=== PATIENT | male | born 1980 | race Caucasian/White ===

== ENCOUNTER 2017-07-07 12:16 | Inpatient (IN) | payer OTHER ==
[2017-07-07] MEDS: NICOTINE 21MG/24HR 1 EA TRANSDERMAL TD (09:00)
[2017-07-07 13:08] LABS: HEMATOCRIT 43.7 % (42.0-52.0); HEMOGLOBIN 15.5 g/dl (14.0-18.0); MEAN CORPUSCULAR HEMOGLOBIN 29.8 pg (27.0-33.0); MEAN CORPUSCULAR HGB CONC 35.5 g/dl (32.0-36.5); PLATELET COUNT, AUTOMATED 281 10^3/uL (150-450); RED CELL DISTRIBUTION WIDTH 12.2 % (11.5-14.5); WHITE BLOOD COUNT 6.3 10^3/uL (4.0-10.0)
[2017-07-07 13:30] LABS: AMPHETAMINES LEVEL URINE POSITIVE (NEGATIVE); BARBITURATES URINE POSITIVE (NEGATIVE); BENZODIAZEPINES URINE NEGATIVE (NEGATIVE); CANNABINOIDS URINE POSITIVE (NEGATIVE); COCAINE METABOLITE URINE NEGATIVE (NEGATIVE); METHADONE URINE NEGATIVE (NEGATIVE); OPIATES URINE POSITIVE (NEGATIVE); PHENCYCLIDINE URINE NEGATIVE (NEGATIVE)
[2017-07-07 13:31] LABS: ALBUMIN 4.4 GM/DL (3.2-5.2); ALBUMIN/GLOBULIN RATIO 1.47 (1.00-1.93); ALKALINE PHOSPHATASE 74 U/L (45-117); ALT/SGPT 15 U/L (12-78); ANION GAP 9 MEQ/L (8-16); AST/SGOT 7 U/L (7-37); BILIRUBIN,DIRECT 0.1 MG/DL (0.0-0.2); BILIRUBIN,TOTAL 0.4 MG/DL (0.2-1.0); BLOOD UREA NITROGEN 10 MG/DL (7-18); CALCIUM LEVEL 9.1 MG/DL (8.5-10.1); CARBON DIOXIDE LEVEL 24 MEQ/L (21-32); CHLORIDE LEVEL 110 MEQ/L (98-107); CREATININE FOR GFR 0.91 MG/DL (0.70-1.30); ETHYL ALCOHOL (ETHANOL) < 0.003 % (0.000-0.010); GLOMERULAR FILTRATION RATE > 60.0 (>60); GLUCOSE, FASTING 122 MG/DL (70-100); POTASSIUM SERUM 3.6 MEQ/L (3.5-5.1); SALICYLATE LEVEL 4.1 MG/DL (5.0-30.0); SODIUM LEVEL 143 MEQ/L (136-145); THYROID STIMULATING HORMONE 0.109 uIU/ML (0.358-3.740); TOTAL PROTEIN 7.4 GM/DL (6.4-8.2)
[2017-07-07 13:38] LABS: ACETAMINOPHEN LEVEL < 2.0 UG/ML (10.0-30.0)
[2017-07-07] MEDS: PROMETHAZINE INJ 25 MG/ML VIAL (J2550) IM (14:04)
[2017-07-07] MEDS: cloNIDine HCL 0.3 MG/24 HR PATCH TOP (14:16)
[2017-07-07] MEDS ORDERED: MAALOX 30 ML SUSP *UDC PO (17:45)
[2017-07-07] MEDS ORDERED: ACETAMINOPHEN TAB 650MG DOSE (2X325MG) PO (17:45)
[2017-07-07] MEDS ORDERED: MOM 30ML SUSPENSION UDC PO (17:45)
[2017-07-07] MEDS: PREGABALIN 100 MG CAP (LYRICA) PO (20:29)
[2017-07-07] MEDS: traZODone 50 MG TAB PO (20:30)
[2017-07-08] MEDS: NICOTINE 21MG/24HR 1 EA TRANSDERMAL TD ×2 (08:16→09:48)
[2017-07-08] MEDS: buPROPion **XL** TABLET 150MG (WELLBUTRIN XL) PO (08:17)
[2017-07-08] MEDS: ARIPiprazole 2 MG TAB PO (08:17)
[2017-07-08] MEDS: PREGABALIN 100 MG CAP (LYRICA) PO (08:17)
[2017-07-08] MEDS: ADDERALL 5 MG TAB PO (09:00)
[2017-07-08] MEDS: BUPRENORPHINE/NALOXONE 8-2MG SUBLINGUAL TABLET(SUBOXONE) SL (09:47)
[2017-07-08] MEDS: hydrOXYzine 50 MG TAB PO ×2 (12:12→18:02)
[2017-07-08] MEDS: GABAPENTIN 300 MG CAP PO ×2 (16:03→20:40)
[2017-07-08] MEDS: traZODone 50 MG TAB PO (20:40)
[2017-07-09] MEDS: hydrOXYzine 50 MG TAB PO ×4 (05:51→17:21)
[2017-07-09] MEDS: BUPRENORPHINE/NALOXONE 8-2MG SUBLINGUAL TABLET(SUBOXONE) SL (09:46)
[2017-07-09] MEDS: ARIPiprazole 2 MG TAB PO (09:46)
[2017-07-09] MEDS: GABAPENTIN 300 MG CAP PO ×3 (09:46→21:38)
[2017-07-09] MEDS: buPROPion **XL** TABLET 150MG (WELLBUTRIN XL) PO (09:46)
[2017-07-09] MEDS: NICOTINE 21MG/24HR 1 EA TRANSDERMAL TD (09:46)
[2017-07-09 10:31] LABS: ALBUMIN 3.8 GM/DL (3.2-5.2); ALBUMIN/GLOBULIN RATIO 1.52 (1.00-1.93); ALKALINE PHOSPHATASE 67 U/L (45-117); ALT/SGPT 18 U/L (12-78); ANION GAP 5 MEQ/L (8-16); AST/SGOT 18 U/L (7-37); BILIRUBIN,TOTAL 0.2 MG/DL (0.2-1.0); BLOOD UREA NITROGEN 12 MG/DL (7-18); CALCIUM LEVEL 8.6 MG/DL (8.5-10.1); CARBON DIOXIDE LEVEL 30 MEQ/L (21-32); CHLORIDE LEVEL 107 MEQ/L (98-107); CREATININE FOR GFR 0.97 MG/DL (0.70-1.30); FREE THYROXINE INDEX 3.5 % (1.4-3.8); GLOMERULAR FILTRATION RATE > 60.0 (>60); GLUCOSE, FASTING 115 MG/DL (70-100); POTASSIUM SERUM 4.8 MEQ/L (3.5-5.1); SODIUM LEVEL 142 MEQ/L (136-145); T UPTAKE 36 % (33-40); THYROXINE (T4) 9.6 UG/DL (4.5-12.0); TOTAL PROTEIN 6.3 GM/DL (6.4-8.2)
[2017-07-09] MEDS: traZODone 100 MG TAB PO (21:38)
[2017-07-10] MEDS: hydrOXYzine 50 MG TAB PO ×4 (06:16→18:01)
[2017-07-10] MEDS: NICOTINE 21MG/24HR 1 EA TRANSDERMAL TD (08:40)
[2017-07-10] MEDS: BUPRENORPHINE/NALOXONE 8-2MG SUBLINGUAL TABLET(SUBOXONE) SL (08:40)
[2017-07-10] MEDS: buPROPion **XL** TABLET 150MG (WELLBUTRIN XL) PO (08:40)
[2017-07-10] MEDS: GABAPENTIN 300 MG CAP PO ×3 (08:40→21:21)
[2017-07-10] MEDS: ARIPiprazole 2 MG TAB PO (08:40)
[2017-07-10 09:58] LABS: HEPATITIS B SURFACE ANTIGEN NEGATIVE (NEGATIVE)
[2017-07-10 10:16] LABS: HEPATITIS B CORE ANTIBODY IGM NEGATIVE (NEGATIVE)
[2017-07-10 10:19] LABS: HIV 1&2 SCREEN CENTAUR NEGATIVE (NEGATIVE)
[2017-07-10 10:20] LABS: HEPATITIS A ANTIBODY IGM NEGATIVE (NEGATIVE)
[2017-07-10 12:07] LABS: HEPATITIS C VIRUS ABY INDEX > 11.0 INDEX (<0.8)
[2017-07-10] MEDS: cloNIDine 0.1 MG TAB PO ×2 (15:28→21:22)
[2017-07-10] MEDS: traZODone 100 MG TAB PO (21:21)
[2017-07-11] MEDS: hydrOXYzine 50 MG TAB PO ×4 (06:20→17:54)
[2017-07-11] MEDS: ARIPiprazole 2 MG TAB PO (08:09)
[2017-07-11] MEDS: buPROPion **XL** TABLET 150MG (WELLBUTRIN XL) PO (08:09)
[2017-07-11] MEDS: GABAPENTIN 300 MG CAP PO ×3 (08:09→21:01)
[2017-07-11] MEDS: NICOTINE 21MG/24HR 1 EA TRANSDERMAL TD (08:09)
[2017-07-11] MEDS: BUPRENORPHINE/NALOXONE 8-2MG SUBLINGUAL TABLET(SUBOXONE) SL (10:05)
[2017-07-11] MEDS: cloNIDine 0.1 MG TAB PO (15:57)
[2017-07-11] MEDS: traZODone 100 MG TAB PO (21:01)
[2017-07-12] MEDS: hydrOXYzine 50 MG TAB PO ×4 (06:15→18:00)
[2017-07-12] MEDS: ARIPiprazole 2 MG TAB PO (09:45)
[2017-07-12] MEDS: GABAPENTIN 300 MG CAP PO ×3 (09:45→20:53)
[2017-07-12] MEDS: buPROPion **XL** TABLET 150MG (WELLBUTRIN XL) PO (09:45)
[2017-07-12] MEDS: NICOTINE 21MG/24HR 1 EA TRANSDERMAL TD (09:45)
[2017-07-12] MEDS: BUPRENORPHINE/NALOXONE 8-2MG SUBLINGUAL TABLET(SUBOXONE) SL (09:45)
[2017-07-12] MEDS: cloNIDine 0.1 MG TAB PO ×2 (11:59→20:54)
[2017-07-12] MEDS: traZODone 100 MG TAB PO (20:53)
[2017-07-13] MEDS: hydrOXYzine 50 MG TAB PO ×3 (06:00→12:00)
[2017-07-13 08:06] LABS: HCV RNA NAA QUALITATIVE Negative (Negative)
[2017-07-13] MEDS: BUPRENORPHINE/NALOXONE 8-2MG SUBLINGUAL TABLET(SUBOXONE) SL ×2 (09:00→12:19)
[2017-07-13] MEDS: buPROPion **XL** TABLET 150MG (WELLBUTRIN XL) PO (09:52)
[2017-07-13] MEDS: ARIPiprazole 2 MG TAB PO (09:52)
[2017-07-13] MEDS: GABAPENTIN 300 MG CAP PO (09:52)
[2017-07-13] MEDS: NICOTINE 21MG/24HR 1 EA TRANSDERMAL TD (09:53)
== END 2017-07-13 13:49 | disposition home or self-care (01) | DRG 773 ==
LOC: M ED 12:16 → M ED INP 14:22 → M PSY 16:05
DX: F11.14 Opioid abuse with opioid-induced mood disorder (principal); F12.188 Cannabis abuse with other cannabis-induced disorder; F15.10 Other stimulant abuse, uncomplicated; F13.10 Sedative, hypnotic or anxiolytic abuse, uncomplicated; F17.210 Nicotine dependence, cigarettes, uncomplicated; M54.5 Low back pain; Z79.899 Other long term (current) drug therapy; Z88.6 Allergy status to analgesic agent; Z88.5 Allergy status to narcotic agent

== ENCOUNTER 2017-07-29 20:39 | Emergency (ER) | payer OTHER ==
[2017-07-29 21:57] LABS: BASO % 0.3 % (0.0-1.0); EOS # 0.2 10^3/uL (0.0-0.50); EOS % 1.4 % (0.0-3.0); HEMATOCRIT 42.5 % (42.0-52.0); HEMOGLOBIN 14.6 g/dl (14.0-18.0); IMMATURE GRANULOCYTE % 0.3 % (0-3.0); LYMPH # 2.5 10^3/uL (1.5-4.5); LYMPH % 21.7 % (24.0-44.0); MEAN CORPUSCULAR HEMOGLOBIN 30.4 pg (27.0-33.0); MEAN CORPUSCULAR HGB CONC 34.4 g/dl (32.0-36.5); MEAN CORPUSCULAR VOLUME 88.5 fl (80.0-96.0); MONO # 0.9 10^3/uL (0.0-0.8); MONO % 7.7 % (0.0-5.0); NEUTROPHILS # 7.9 10^3/uL (1.8-7.7); NEUTROPHILS % 68.6 % (36.0-66.0); PLATELET COUNT, AUTOMATED 297 10^3/uL (150-450); RED CELL DISTRIBUTION WIDTH 13.2 % (11.5-14.5); WHITE BLOOD COUNT 11.5 10^3/uL (4.0-10.0)
[2017-07-29] MEDS: METOCLOPRAMIDE INJ 10MG/2ML VIAL (J2765) IV (21:57)
[2017-07-29] MEDS: TOPIRAMATE (TopAMAX) 100 MG TAB PO (21:57)
[2017-07-29] MEDS: NS 1,000 ML IV (21:57)
[2017-07-29 22:14] LABS: ANION GAP 8 MEQ/L (8-16); BLOOD UREA NITROGEN 13 MG/DL (7-18); CALCIUM LEVEL 9.5 MG/DL (8.5-10.1); CARBON DIOXIDE LEVEL 32 MEQ/L (21-32); CHLORIDE LEVEL 106 MEQ/L (98-107); CREATININE FOR GFR 1.01 MG/DL (0.70-1.30); GLOMERULAR FILTRATION RATE > 60.0 (>60); GLUCOSE, FASTING 114 MG/DL (70-100); POTASSIUM SERUM 3.9 MEQ/L (3.5-5.1); SODIUM LEVEL 146 MEQ/L (136-145)
[2017-07-29] MEDS: MORPHINE 4 MG/ML 1ML VIAL (J2270) IV (22:30)
== END 2017-07-29 23:22 | disposition home or self-care (01) ==
LOC: M ED 20:39
DX: G43.009 Migraine without aura, not intractable, without status migrainosus (principal); Z79.899 Other long term (current) drug therapy; Z88.5 Allergy status to narcotic agent; Z88.1 Allergy status to other antibiotic agents
CPT/HCPCS: J2270

== ENCOUNTER 2017-09-25 14:11 | Outpatient (RCR) | payer MEDICAID | END 2017-10-12 | LOC: M OUTALCOH 14:11 | DX: F11.20 Opioid dependence, uncomplicated (principal); F10.20 Alcohol dependence, uncomplicated; F17.200 Nicotine dependence, unspecified, uncomplicated ==

== ENCOUNTER 2017-12-05 17:00 | Inpatient (IN) | payer OTHER, MEDICAID ==
[2017-12-05] MEDS: NS 1,000 ML IV ×2 (17:41→20:18)
[2017-12-05] MEDS: CHARCOAL ACTIVATED LIQUID 25 GM/120 ML BTL PO (17:42)
[2017-12-05 17:53] LABS: HEMATOCRIT 40.7 % (42.0-52.0); HEMOGLOBIN 14.5 g/dl (13.5-17.5); MEAN CORPUSCULAR HEMOGLOBIN 30.1 pg (27.0-33.0); MEAN CORPUSCULAR HGB CONC 35.6 g/dl (32.0-36.5); MEAN CORPUSCULAR VOLUME 84.4 fl (80.0-96.0); PLATELET COUNT, AUTOMATED 292 10^3/uL (150-450); RED BLOOD COUNT 4.82 10^6/uL (4.30-6.10); RED CELL DISTRIBUTION WIDTH 12.7 % (11.5-14.5); WHITE BLOOD COUNT 12.5 10^3/uL (4.0-10.0)
[2017-12-05] MEDS ORDERED: ONDANSETRON 4MG/2ML VIAL (J2405) As Ordered (17:54)
[2017-12-05] MEDS: ONDANSETRON 4MG/2ML VIAL (J2405) IV (17:57)
[2017-12-05 18:10] LABS: ALBUMIN 3.5 GM/DL (3.2-5.2); ALBUMIN/GLOBULIN RATIO 1.03 (1.00-1.93); ALKALINE PHOSPHATASE 78 U/L (45-117); ALT/SGPT 20 U/L (12-78); ANION GAP 8 MEQ/L (8-16); AST/SGOT 10 U/L (7-37); BILIRUBIN,DIRECT < 0.1 MG/DL (0.0-0.2); BILIRUBIN,TOTAL 0.2 MG/DL (0.2-1.0); BLOOD UREA NITROGEN 8 MG/DL (7-18); CALCIUM LEVEL 8.1 MG/DL (8.5-10.1); CARBON DIOXIDE LEVEL 26 MEQ/L (21-32); CHLORIDE LEVEL 110 MEQ/L (98-107); CREATININE FOR GFR 0.86 MG/DL (0.70-1.30); GLOMERULAR FILTRATION RATE > 60.0 (>60); GLUCOSE, FASTING 132 MG/DL (70-100); POTASSIUM SERUM 3.7 MEQ/L (3.5-5.1); SALICYLATE LEVEL 3.6 MG/DL (5.0-30.0); SODIUM LEVEL 144 MEQ/L (136-145); TOTAL PROTEIN 6.9 GM/DL (6.4-8.2)
[2017-12-05 18:13] LABS: ACETAMINOPHEN LEVEL < 2.0 UG/ML (10.0-30.0); ETHYL ALCOHOL (ETHANOL) < 0.003 % (0.000-0.010)
[2017-12-05 19:12] LABS: AMPHETAMINES LEVEL URINE NEGATIVE (NEGATIVE); BARBITURATES URINE POSITIVE (NEGATIVE); BENZODIAZEPINES URINE NEGATIVE (NEGATIVE); CANNABINOIDS URINE NEGATIVE (NEGATIVE); COCAINE METABOLITE URINE NEGATIVE (NEGATIVE); METHADONE URINE NEGATIVE (NEGATIVE); OPIATES URINE NEGATIVE (NEGATIVE); PHENCYCLIDINE URINE NEGATIVE (NEGATIVE)
[2017-12-05 19:14] LABS: MAGNESIUM LEVEL 1.7 MG/DL (1.8-2.4)
[2017-12-05] MEDS ORDERED: cloNIDine 0.1 MG TAB PO (20:30)
[2017-12-05] MEDS ORDERED: ONDANSETRON 4MG/2ML VIAL (J2405) IV (20:30)
[2017-12-05] MEDS: PROPRANOLOL 20 MG TAB PO (21:00)
[2017-12-05] MEDS: PANTOPRAZOLE 40MG INJ (PROTONIX) (C9113) IV (21:00)
[2017-12-05] MEDS: D5W/0.45% SODIUM CHLORIDE 1,000 ML IV (21:29)
[2017-12-06 00:36] LABS: BEDSIDE GLUCOSE 151 MG/DL (70-105)
[2017-12-06] MEDS: NS 1,000 ML IV (03:36)
[2017-12-06] MEDS: D5W/0.45% SODIUM CHLORIDE 1,000 ML IV ×3 (04:00→20:21)
[2017-12-06 06:58] LABS: HEMATOCRIT 32.5 % (42.0-52.0); MEAN CORPUSCULAR HEMOGLOBIN 30.5 pg (27.0-33.0); MEAN CORPUSCULAR HGB CONC 35.4 g/dl (32.0-36.5); MEAN CORPUSCULAR VOLUME 86.2 fl (80.0-96.0); PLATELET COUNT, AUTOMATED 225 10^3/uL (150-450); RED BLOOD COUNT 3.77 10^6/uL (4.30-6.10); RED CELL DISTRIBUTION WIDTH 13.3 % (11.5-14.5); WHITE BLOOD COUNT 7.2 10^3/uL (4.0-10.0)
[2017-12-06 07:05] LABS: HEMOGLOBIN 11.5 g/dl (13.5-17.5)
[2017-12-06 07:23] LABS: ALBUMIN 2.7 GM/DL (3.2-5.2); ALBUMIN/GLOBULIN RATIO 1.04 (1.00-1.93); ALKALINE PHOSPHATASE 56 U/L (45-117); ALT/SGPT 13 U/L (12-78); ANION GAP 7 MEQ/L (8-16); AST/SGOT 7 U/L (7-37); BILIRUBIN,TOTAL 0.2 MG/DL (0.2-1.0); BLOOD UREA NITROGEN 5 MG/DL (7-18); CALCIUM LEVEL 7.5 MG/DL (8.5-10.1); CARBON DIOXIDE LEVEL 25 MEQ/L (21-32); CHLORIDE LEVEL 114 MEQ/L (98-107); CREATININE FOR GFR 0.74 MG/DL (0.70-1.30); GLOMERULAR FILTRATION RATE > 60.0 (>60); GLUCOSE, FASTING 117 MG/DL (70-100); MAGNESIUM LEVEL 1.8 MG/DL (1.8-2.4); POTASSIUM SERUM 3.7 MEQ/L (3.5-5.1); SODIUM LEVEL 146 MEQ/L (136-145); TOTAL PROTEIN 5.3 GM/DL (6.4-8.2)
[2017-12-06 11:39] LABS: BEDSIDE GLUCOSE 136 MG/DL (70-105)
[2017-12-06] MEDS: ATROPINE SULF 1MG/10ML SYRINGE (J0461) IV (16:47)
[2017-12-06 18:37] LABS: BEDSIDE GLUCOSE 142 MG/DL (70-105)
[2017-12-06] MEDS: PANTOPRAZOLE 40MG INJ (PROTONIX) (C9113) IV (21:00)
[2017-12-07 07:58] LABS: HEMATOCRIT 36.5 % (42.0-52.0); HEMOGLOBIN 12.7 g/dl (13.5-17.5); MEAN CORPUSCULAR HEMOGLOBIN 29.9 pg (27.0-33.0); MEAN CORPUSCULAR HGB CONC 34.8 g/dl (32.0-36.5); MEAN CORPUSCULAR VOLUME 85.9 fl (80.0-96.0); PLATELET COUNT, AUTOMATED 241 10^3/uL (150-450); RED BLOOD COUNT 4.25 10^6/uL (4.30-6.10); RED CELL DISTRIBUTION WIDTH 13.1 % (11.5-14.5); WHITE BLOOD COUNT 5.5 10^3/uL (4.0-10.0)
[2017-12-07 08:26] LABS: MAGNESIUM LEVEL 1.8 MG/DL (1.8-2.4)
[2017-12-07 08:29] LABS: ANION GAP 8 MEQ/L (8-16); BLOOD UREA NITROGEN 2 MG/DL (7-18); CARBON DIOXIDE LEVEL 24 MEQ/L (21-32); CHLORIDE LEVEL 112 MEQ/L (98-107); CREATININE FOR GFR 0.78 MG/DL (0.70-1.30); GLOMERULAR FILTRATION RATE > 60.0 (>60); GLUCOSE, FASTING 124 MG/DL (70-100); POTASSIUM SERUM 3.4 MEQ/L (3.5-5.1); SODIUM LEVEL 144 MEQ/L (136-145)
[2017-12-07] MEDS: POTASSIUM CHLORIDE 10 MEQ SR TABLET PO (11:40)
[2017-12-07] MEDS: PANTOPRAZOLE 40MG INJ (PROTONIX) (C9113) IV (20:43)
== END 2017-12-07 22:28 | DRG 812 ==
LOC: M ICU 12-06 00:09 → M MSPAV 12-07 16:42 → M ED 17:00 → M ED INP 20:21
DX: T43.212A Poisoning by selective serotonin and norepinephrine reuptake inhibitors, intentional self-harm, initial encounter (principal); T44.7X2A Poisoning by beta-adrenoreceptor antagonists, intentional self-harm, initial encounter; T43.202A Poisoning by unspecified antidepressants, intentional self-harm, initial encounter; Y92.009 Unspecified place in unspecified non-institutional (private) residence as the place of occurrence of the external cause; M54.5 Low back pain; R00.1 Bradycardia, unspecified; F41.9 Anxiety disorder, unspecified; F32.9 Major depressive disorder, single episode, unspecified; F12.159 Cannabis abuse with psychotic disorder, unspecified; F15.14 Other stimulant abuse with stimulant-induced mood disorder; F90.9 Attention-deficit hyperactivity disorder, unspecified type; I95.9 Hypotension, unspecified; F11.14 Opioid abuse with opioid-induced mood disorder; Z88.5 Allergy status to narcotic agent; Z88.8 Allergy status to other drugs, medicaments and biological substances; Z59.0 Homelessness; Z79.899 Other long term (current) drug therapy

== ENCOUNTER 2017-12-07 22:35 | Inpatient (IN) | payer OTHER ==
[2017-12-07] MEDS ORDERED: MAALOX 30 ML SUSP *UDC PO (23:00)
[2017-12-07] MEDS ORDERED: ACETAMINOPHEN TAB 650MG DOSE (2X325MG) PO (23:00)
[2017-12-07] MEDS ORDERED: MOM 30ML SUSPENSION UDC PO (23:00)
[2017-12-07] MEDS: traZODone 50 MG TAB PO (23:21)
[2017-12-07] MEDS: OLANZapine ORAL DISINTEGRATING TAB 5MG PO (23:22)
[2017-12-08 08:33] LABS: ANION GAP 10 MEQ/L (8-16); BLOOD UREA NITROGEN 6 MG/DL (7-18); CALCIUM LEVEL 8.8 MG/DL (8.5-10.1); CARBON DIOXIDE LEVEL 25 MEQ/L (21-32); CHLORIDE LEVEL 112 MEQ/L (98-107); GLOMERULAR FILTRATION RATE > 60.0 (>60); GLUCOSE, FASTING 104 MG/DL (70-100); POTASSIUM SERUM 3.5 MEQ/L (3.5-5.1); SODIUM LEVEL 147 MEQ/L (136-145)
[2017-12-08] MEDS: NICOTINE 21MG/24HR 1 EA TRANSDERMAL TD (09:00)
[2017-12-08] MEDS: buPROPion **XL** TABLET 150MG (WELLBUTRIN XL) PO (16:01)
[2017-12-09 07:53] LABS: ANION GAP 8 MEQ/L (8-16); BLOOD UREA NITROGEN 13 MG/DL (7-18); CALCIUM LEVEL 8.6 MG/DL (8.5-10.1); CARBON DIOXIDE LEVEL 28 MEQ/L (21-32); CHLORIDE LEVEL 112 MEQ/L (98-107); CREATININE FOR GFR 0.94 MG/DL (0.70-1.30); GLOMERULAR FILTRATION RATE > 60.0 (>60); GLUCOSE, FASTING 135 MG/DL (70-100); POTASSIUM SERUM 3.5 MEQ/L (3.5-5.1); SODIUM LEVEL 148 MEQ/L (136-145)
[2017-12-09] MEDS: NICOTINE 21MG/24HR 1 EA TRANSDERMAL TD (09:06)
[2017-12-09] MEDS: buPROPion **XL** TABLET 150MG (WELLBUTRIN XL) PO (09:06)
== END 2017-12-09 11:25 | disposition home or self-care (01) | DRG 773 ==
LOC: M PSY 22:35
DX: F19.94 Other psychoactive substance use, unspecified with psychoactive substance-induced mood disorder (principal); F11.90 Opioid use, unspecified, uncomplicated; F12.90 Cannabis use, unspecified, uncomplicated; F15.90 Other stimulant use, unspecified, uncomplicated; F17.200 Nicotine dependence, unspecified, uncomplicated; E87.6 Hypokalemia; E87.0 Hyperosmolality and hypernatremia; M54.5 Low back pain

== ENCOUNTER → 2018-03-08 | Outpatient (REF) | payer OTHER ==
[2018-03-08 18:26] LABS: BASO # 0.1 10^3/uL (0.0-0.2); BASO % 0.6 % (0.0-1.0); EOS # 0.1 10^3/uL (0.0-0.50); EOS % 1.5 % (0.0-3.0); HEMATOCRIT 46.1 % (42.0-52.0); HEMOGLOBIN 16.1 g/dl (13.5-17.5); IMMATURE GRANULOCYTE % 0.1 % (0-3.0); LYMPH % 37.1 % (24.0-44.0); MEAN CORPUSCULAR HEMOGLOBIN 30.1 pg (27.0-33.0); MEAN CORPUSCULAR HGB CONC 34.9 g/dl (32.0-36.5); MEAN CORPUSCULAR VOLUME 86.3 fl (80.0-96.0); MONO # 0.4 10^3/uL (0.0-0.8); MONO % 4.8 % (0.0-5.0); NEUTROPHILS # 4.4 10^3/uL (1.8-7.7); NEUTROPHILS % 55.9 % (36.0-66.0); PLATELET COUNT, AUTOMATED 264 10^3/uL (150-450); RED BLOOD COUNT 5.34 10^6/uL (4.30-6.10); RED CELL DISTRIBUTION WIDTH 12.2 % (11.5-14.5)
[2018-03-08 18:54] LABS: ALBUMIN 4.6 GM/DL (3.2-5.2); ALBUMIN/GLOBULIN RATIO 1.48 (1.00-1.93); ALKALINE PHOSPHATASE 80 U/L (45-117); ALT/SGPT 27 U/L (12-78); ANION GAP 8 MEQ/L (8-16); AST/SGOT 12 U/L (7-37); BILIRUBIN,TOTAL 0.4 MG/DL (0.2-1.0); BLOOD UREA NITROGEN 12 MG/DL (7-18); CALCIUM LEVEL 9.1 MG/DL (8.5-10.1); CARBON DIOXIDE LEVEL 25 MEQ/L (21-32); CHLORIDE LEVEL 107 MEQ/L (98-107); CHOLESTEROL LEVEL 200 MG/DL (<200); CHOLESTEROL RISK RATIO 3.921 (<5); CREATININE FOR GFR 0.87 MG/DL (0.70-1.30); GLOMERULAR FILTRATION RATE > 60.0 (>60); GLUCOSE, FASTING 105 MG/DL (70-100); HDL CHOLESTEROL 51 MG/DL (>40); LDL CHOLESTEROL 127 MG/DL (<100); NON-HDL-C 149 MG/DL; SODIUM LEVEL 140 MEQ/L (136-145); TOTAL PROTEIN 7.7 GM/DL (6.4-8.2); TRIGLYCERIDES LEVEL 108 MG/DL (<150)
[2018-03-08 19:50] LABS: TOTAL 25(OH) VITAMIN D 21.4 NG/ML (30.0-100.0)
[2018-03-08 19:54] LABS: ESTIMATED AVERAGE GLUCOSE 108 MG/DL (60-110); HEMOGLOBIN A1c 5.4 %
== END ==
LOC: M LAB REF 17:46
DX: Z13.9 Encounter for screening, unspecified (principal)

== ENCOUNTER → 2018-04-19 | Outpatient (CLI) | payer MEDICAID | LOC: M OUTALCOH 08:56 | DX: Z13.89 Encounter for screening for other disorder (principal); F10.20 Alcohol dependence, uncomplicated; F12.20 Cannabis dependence, uncomplicated ==

== ENCOUNTER 2018-07-02 15:00 | Outpatient (RCR) | payer MEDICAID ==
[~2018-07-02 15:00] MED LIST: ABIL1TAB13 PO; ADDE30CA3 PO; BUPR150T3 PO; BUPR300T34 PO; CLON-412 PO; FIOR1CAP PO; GABA-843 PO; HYDR50CA2 PO; LYRI200C PO; OLAN10TA2 PO; PROP60TA14 PO; RITA20TA PO; SERT-138 PO; SUBO12MI SL; SUBO8MIS SL; TRAZ-163 PO; TRAZ-189 PO; TRAZO50TA PO; TYLE325T5 PO; VIST50CA PO; WELLTAB38 PO; WELLTAB40 PO; XANA1TAB2 PO
== END 2018-07-15 ==
LOC: M OUTALCOH 15:00
PROVIDERS: ATTEND Psychiatry & Neurology Psychiatry
DX: F11.20 Opioid dependence, uncomplicated (principal); F12.20 Cannabis dependence, uncomplicated; F10.20 Alcohol dependence, uncomplicated